=== PATIENT | female | born 1955 | race Caucasian/White ===

== ENCOUNTER → 2017-01-20 | Outpatient (CLI) | payer OTHER ==
--- NOTE | 2017-01-20 14:25 | Diagnostic Imaging Report ---
INDICATION: Screening. The current study was also evaluated with a Computer Aided Detection (CAD) system. Comparison made with prior examination of 02/21/2015. FINDINGS: There is a moderate amount of residual fibroglandular tissue bilaterally. There are scattered benign-type calcifications in both breasts. There are benign lymph nodes in the axillary region of both breasts. There is no new dominant mass, spiculated lesion, or suspicious calcification identified. IMPRESSION: Benign. ACR BI-RADS Category 2: Benign findings. Result letter will be mailed to the patient. Note: At least 10% of breast cancer is not imaged by mammography. Dictated by: Dictated on workstation # [id number]
== END ==
LOC: RAD 10:54
PROVIDERS: ATTEND Nurse Practitioner Community Health
DX: Z12.31 Encounter for screening mammogram for malignant neoplasm of breast (principal)
CPT/HCPCS: 77067

== ENCOUNTER → 2020-01-17 | Outpatient (CLI) | payer SELFPAY | LOC: RAD 14:00 | PROVIDERS: ATTEND Nurse Practitioner | DX: R29.810 Facial weakness (principal); Z53.8 Procedure and treatment not carried out for other reasons ==

== ENCOUNTER → 2020-03-01 | Outpatient (CLI) | payer OTHER ==
[~2020-03-01] VITALS: Ht 152 cm; Wt 131.0 kg
[~2020-03-01] MED LIST: CATHETER FLUSH 10 ML SYR IV PRN; REGADENOSON 0.4 MG/5 ML SYR (LEXISCAN) IV ONE
[2020-03-01 13:06] VITALS: BP 141/84
[2020-03-01 13:20] VITALS: BP 132/94
--- NOTE | 2020-03-01 15:48 | Cardiology Stress Test Report ---
Stress Test Report Date of Procedure/Referring: Date of Procedure: Mar 01, 2020 PCP Scarlet Ballard MD Admitting Physician Center/[facility] Indications: Chest pain, hypertension Baseline Heart Rate: 96 Baseline Blood Pressure: Blood Pressure Systolic: 132 Blood Pressure Diastolic: 94 Baseline Vitals Vital Signs Date Time Temp Pulse Resp B/P (MAP) Pulse Ox O2 Delivery O2 Flow Rate FiO2 03/01/20 13:06 94 16 141/84 (103) 98 Room Air Baseline EKG: Baseline EKG: normal sinus rhythm Summary After explaining the procedure to the patient, she signed a consent and then brought to the stress nuclear laboratory. Patient received 0.4 mg Lexiscan for stress test, ECG, heart rate and blood pressure were monitored continuously. Resting and stress dose of radio tracer were injected, imaging was acquired and reviewed in short axis, horizontal long axis and vertical long axis views. TID: 1.01 SSS: 12 SDS: 12 EF: 39 1. Patient tolerated Lexiscan well 2. Reversible ischemia involving the whole inferior wall and inferolateral wall 3. Normal left ventricular size with diffuse left ventricular hypokinesia, EF 39 percent SCARLET BALLARD MD Mar 01, 2020 15:48
== END ==
LOC: CARD 09:22
PROVIDERS: ATTEND Internal Medicine Cardiovascular Disease
DX: E11.9 Type 2 diabetes mellitus without complications (principal); I10 Essential (primary) hypertension; R06.00 Dyspnea, unspecified; R07.9 Chest pain, unspecified; E66.01 Morbid (severe) obesity due to excess calories
CPT/HCPCS: 78452; 93017; 93306; A9502

== ENCOUNTER → 2020-03-13 | Outpatient (CLI) | payer OTHER ==
[~2020-03-13] MED LIST changes: +ASPI325T32 PO; +CANA1TAB4 PO; -CATHETER FLUSH 10 ML SYR IV PRN; +DESV50TA PO; +DEXT1TAB13 PO; +DORZ10DR27 OU; +INSU100I23 SQ; +INSU100I29 SQ; +LIRA0.6P3 SQ; +LISI40TA PO; +METO50TA7 PO; -REGADENOSON 0.4 MG/5 ML SYR (LEXISCAN) IV ONE; +ROPI1TAB PO; +TIMO5DRO5 OU; +VIT1CAPS44 PO; +ZOLP5TAB PO; +[UNRECOGNIZED DRUG - OTHER] PO
== END ==
LOC: LABNPT 05:40
PROVIDERS: ATTEND Internal Medicine Cardiovascular Disease
DX: Z01.812 Encounter for preprocedural laboratory examination (principal); Z53.8 Procedure and treatment not carried out for other reasons

== ENCOUNTER 2020-03-15 09:00 | Day surgery (SDC) | payer OTHER ==
[~2020-03-15] VITALS: Ht 152 cm; Wt 128.0 kg
[2020-03-15] VITALS (10 sets, daily range): BP systolic 102–158; BP diastolic 56–99
[2020-03-15 07:38] LABS: HEMOGLOBIN 15.1 g/dL (11.5-16.0); MEAN PLATELET VOLUME 10.6 fL (9.0-12.2); WHITE BLOOD COUNT 9.8 10^3/uL (4.3-11.0)
[2020-03-15 07:48] LABS: PROTHROMBIN TIME PATIENT 13.2 SEC (12.2-14.7)
[2020-03-15 07:59] LABS: ALANINE AMINOTRANSFERASE 48 U/L (0-55); ALBUMIN 3.9 GM/DL (3.2-4.5); ALKALINE PHOSPHATASE 75 U/L (40-136); BILIRUBIN,TOTAL 0.5 MG/DL (0.1-1.0); BUN/CREATININE RATIO 14; CALCIUM 9.4 MG/DL (8.5-10.1); CARBON DIOXIDE 19 MMOL/L (21-32); CHLORIDE 107 MMOL/L (98-107); CHOLESTEROL 155 MG/DL (< 200); GFR ESTIMATED > 60; GLUCOSE 284 MG/DL (70-105); HDL CHOLESTEROL 33 MG/DL (40-60); POTASSIUM 4.3 MMOL/L (3.6-5.0); SODIUM 139 MMOL/L (135-145); TOTAL PROTEIN 7.4 GM/DL (6.4-8.2); TRIGLYCERIDES 201 MG/DL (<150); VLDL CHOLESTEROL 40 MG/DL (5-40)
--- NOTE | 2020-03-15 08:21 | NUR ---
SPOKE WITH THE PT (SHE HAS HER BOTTLES WITH HER) AND CALLED [facility] AND [facility] TO COMPLETE THE MED REC 07-10-2019 AMBIEN 5MG #30/30DS (PT DID NOT BRING THIS MED WITH HER) 11-05-2019 TIMOLOL #1 02-14-2020 INVOKAMET 150/1000MG #180/90DS 02-29-2020 DORZOLAMIDE #1 02-29-2020 METOPROLOL SUCC 50MG #30/30DS LISINOPRIL 40MG #90/90DS 02-29-2020 ROPINIROLE 1MG #270/90DS 03-01-2020 PRISTIQ 50MG #30/30DS PT SAID SHE GETS HER INSULINS THRU A PROGRAM AT [facility]- I CALLED AND WAS TOLD SHE GETS THEM THRU THE PALS PROGRAM. I CALLED TO GET THE LAST FILL DATES BUT HAD TO LEAVE A MESSAGE, IF/WHEN I HEAR BACK I WILL UPDATE THE NOTES OT MEDS: ASPIRIN 325MG GLUCOSE TABS ILLLUMNEYES Addendum: 03/15/20 at 1032 by SHAWN PARKS [facility] RETURNED MY CALL REGARDING PTS INSULIN. ON 09-02-2019 [facility] RECEIVED AN ORDER FOR A 4 MONTH SUPPLY ON VICTOZA AND LEVEMIR, HOWEVER [facility] DOES NOT SHOW A LAST FILL DATE FOR HUMALOG
--- NOTE | 2020-03-15 08:33 | Diagnostic Imaging Report ---
Portable erect AP chest. INDICATION: Coronary artery disease. There are no prior studies available for comparison. FINDINGS: The heart size is at the upper limits of normal or slightly enlarged. The lungs are clear. There is no evidence for failure, pneumonia or for pleural effusion. The mediastinum is not widened. The osseous structures are intact. IMPRESSION: There is no evidence for active disease. Dictated by: Dictated on workstation # [id number]
[~2020-03-15 09:00] MED LIST changes: +HEParin (CATH LAB) 2,000 ML IV ONE; +HEParin 1000 UNIT/ML (10ML VIAL) FOR BOLUS ONE; +LIDOCAINE 1% INJ 20 ML 20 ML VIAL ONE; +MIDAZOLAM 5 MG/5 ML (VERSED) VIAL ONE; +NITRO DRIP 25000 MCG/D5W 250 ML IV ONE; +NS IV 1000 ML 1,000 ML IV SCH; +NS IV 1000 ML 1,000 ML ONE; +VERAPAMIL 5 MG/2 ML (CALAN) VIAL IV ONE; +fentaNYL INJECTION 100 MCG/2 ML AMP ONE
--- NOTE | 2020-03-15 09:02 | Cardiac Procedure Note-CS/ASA ---
Pre-Procedure Note Pre-Op Procedure Note H&P Reviewed The H&P was reviewed, patient examined and no changes noted. Date H&P Reviewed: Mar 15, 2020 Time H&P Reviewed: 09:02 Conscious Sedation Pre-Proced Time 09:02 ASA Score 3 For ASA 3 and 4: Consider anesthesia and medical clearance. Also, for patients with a history of failed moderate sedation consider anesthesia. Airway Lungs Heart ASA score ASA 1: a normal healthy patient ASA 2: a patient with a mild systemic disease (mid diabetes, controlled hypertension, obesity x ASA 3: a patient with a severe systemic disease that limits activity (angina, COPD, prior Myocardial infarction) ASA 4: a patient with an incapacitating disease that is a constant threat to life (CHF, renal failure) ASA 5: a moribund patient not expected to survive 24 hrs. (ruptured aneurysm) ASA 6: a declared brain- patient whose organs are being harvested. For emergent operations, add the letter E after the classification Mallampati Classification Grade 3 Sedation Plan Analgesia, Amnesia, Plan communicated to team members, Discussed options with patient/fam, Discussed risks with patient/fam The patient is an appropriate candidate to undergo the planned procedure, sedation, and anesthesia. The patient immediately re-assessed prior to indication. SCARLET OLMSTEAD MD Mar 15, 2020 09:02
[2020-03-15] MEDS ORDERED: NS IV 1000 ML 1,000 ML IV SCH (09:55)
--- NOTE | 2020-03-15 09:57 | Discharge Inst-Post CATH ---
Discharge Inst-CATH/EP Problems Reviewed?: Yes Post Cardiac Cath/EP D/C Inst Follow Up/Plan Appointment with Dr. OLMTSEAD's office in 2-4 weeks <b>CARDIAC CATH/EP PROCEDURE DISCHARGE INSTRUCTIONS</b> ACTIVITY * Go Home directly and rest. * Limit activity of the leg (or wrist if it was used) for 7 days including aerobics, swimming, jogging, bicycling, etc. * Restrict stair-climbing for 7 days if possible, if not, climb up with your non-cath leg, then bring together on the same step. * Avoid lifting, pushing, pulling or excessive movement of the affected extremity for 7 days. * Customary sexual activity may be resumed after 2 days-use caution not to use a position that strains or causes pain to the affected extremity. * No driving for 24 hours. * NO SMOKING. * Avoid straining for bowel movements for 7 days. * Gentle walking on level ground is allowed. * Returning to work will depend on the type of procedure and the results. Your doctor will discuss this with you. CALL YOUR DOCTOR FOR ANY OF THE FOLLOWING: *If bleeding from the puncture site occurs- Apply gentle pressure to site with clean cloth and call your doctor or EMS. * If a knot or lump forms under the skin, increases in size, or causes pain. * If bruising appears to be worsening or moving further down your leg instead of disappearing. * Temperature above 101 F. CARE OF YOUR GROIN INCISION; * Bruising or purple discoloration of the skin near the puncture site is common. * You may shower only, no bathtub bathing for 5 days. Be careful to avoid slipping as your leg may feel stiff. * If a closure device was used on your femoral artery, please see the attached guide regarding care of the device and your leg. * Leave dressing on FOR 24 hours. CARE OF YOUR WRIST INCISION; * Bruising or purple discoloration of the skin near the puncture site is common. * You may shower. * DO NOT submerge wrist. * Leave dressing on FOR 24 hours. SCARLET OLMSTEAD MD Mar 15, 2020 9:57 am
--- NOTE | 2020-03-15 10:00 | Cardiac Cath Report ---
Cardiac Cath Report Physician (s)/Automotive Refinish Technician (s) Physician SCARLET OLMSTEAD MD Pre-Procedure Diagnosis Pre-Procedure Diagnosis: coronary artery disease Post-Procedure Note Procedure Start Date: Mar 15, 2020 Name of Procedure: Left heart catheterization Findings/Procedure Note PROCEDURE NOTE: 64-year-old lady with history of diabetes mellitus, hypertension hyperlipidemia, had an abnormal stress test with inferior wall ischemia scheduled for cardiac catheterization possible PTCA. After explaining the procedure to the patient, all pros and cons were explained, all questions were answered. The patient signed the consent and then she was placed on the cardiac catheterization laboratory. Groin was prepped SL fashion local anesthesia was used. Sheath placed in the right radial artery, [place] catheter was used advanced to the left ventricular cavity, pressure was measured, pullback LV to aorta was done then turned to the right coronary artery and angiogram was done I was unable to intubate the left coronary artery exchanged the catheter in 2 JL 3.5 without success then I used MP1 which was successful in intubating the left main coronary artery and angiogram to the left system was done. Pullback LV to aorta was measured no left ventriculogram was done At the end of the procedure the sheath was removed. Vascular band was used FINDINGS: Hemodynamics LV 94/22, end-diastolic pressure of 22 Aorta 86/68 mean of 73 ANATOMY: Left Main is free of obstructive disease Left Anterior Descending has mild disease nonobstructive disease Left Circumflex is large dominant artery with slow flow due to small vessel disease no significant obstructive disease Right Coronory Artery is small nondominant artery with no obstructive disease LV Gram was not done, pressure was measured CONCLUSION: 1. Large dominant circumflex artery with slow flow due to small vessel disease nonobstructive disease 2. Otherwise mild coronary artery disease 3. Mildly elevated left ventricular end-diastolic pressure DISCUSSION AND RECOMMENDATION: Radical therapy is recommended no intervention is warranted Anesthesia Type: Conscious Sedation Estimated blood loss (mL): 15 ml Contrast Amount: 25 ml Total Radiation Dose: 628 mGy Post-Procedure Diagnosis Post-operative diagnosis: Chest pain Coronary artery disease Hypertension Hyperlipidemia SCARLET OLMSTEAD MD Mar 15, 2020 10:00 am
== END 2020-03-15 12:40 | disposition home or self-care (01) ==
LOC: CATH 09:00 → SDC 10:06 → CATH 12:40
PROVIDERS: ATTEND Internal Medicine Cardiovascular Disease
DX: I25.10 Atherosclerotic heart disease of native coronary artery without angina pectoris (principal); E11.9 Type 2 diabetes mellitus without complications; R94.39 Abnormal result of other cardiovascular function study; E78.2 Mixed hyperlipidemia; I11.0 Hypertensive heart disease with heart failure; I50.9 Heart failure, unspecified; E66.01 Morbid (severe) obesity due to excess calories; Z68.43 Body mass index [BMI] 50.0-59.9, adult; Z79.899 Other long term (current) drug therapy
CPT/HCPCS: 71045; 80053; 80061; 85027; 85610; 85730; 87081; 93458; C1769; 36415

== ENCOUNTER → 2020-10-10 | Outpatient (CLI) | payer MEDICARE, OTHER ==
[~2020-10-10] MED LIST changes: -HEParin (CATH LAB) 2,000 ML IV ONE; -HEParin 1000 UNIT/ML (10ML VIAL) FOR BOLUS ONE; -LIDOCAINE 1% INJ 20 ML 20 ML VIAL ONE; -LISI40TA PO; +LISI40TA9 PO; -MIDAZOLAM 5 MG/5 ML (VERSED) VIAL ONE; -NITRO DRIP 25000 MCG/D5W 250 ML IV ONE; -NS IV 1000 ML 1,000 ML IV SCH; -NS IV 1000 ML 1,000 ML ONE; -VERAPAMIL 5 MG/2 ML (CALAN) VIAL IV ONE; -fentaNYL INJECTION 100 MCG/2 ML AMP ONE
--- NOTE | 2020-10-10 20:44 | Diagnostic Imaging Report ---
INDICATION: Routine screening. COMPARISON is made with prior mammograms 01/20/2017 and 02/21/2015. 2-D and 3-D bilateral screening mammography was performed with CAD. Scattered fibroglandular densities are identified bilaterally. Intraparenchymal lymph node upper outer left breast is stable. Benign calcifications are scattered throughout both breasts. No spiculated mass or malignant appearing microcalcifications are seen. Axillae are unremarkable. IMPRESSION: BI-RADS Category 2 No mammographic features suspicious for malignancy are identified. ACR BI-RADS Category 2: Benign findings. Result letter will be mailed to the patient. Note: At least 10% of breast cancer is not imaged by mammography. Dictated by: Dictated on workstation # [id number]
== END ==
LOC: RAD 11:09
PROVIDERS: ATTEND Nurse Practitioner Family
DX: Z12.31 Encounter for screening mammogram for malignant neoplasm of breast (principal); Z13.820 Encounter for screening for osteoporosis
CPT/HCPCS: 77063; 77067

== ENCOUNTER → 2020-12-11 | Outpatient (CLI) | payer MEDICARE, OTHER | LOC: CARD 10:05 | PROVIDERS: ATTEND Physician Assistant | DX: I25.10 Atherosclerotic heart disease of native coronary artery without angina pectoris (principal); I11.9 Hypertensive heart disease without heart failure | CPT/HCPCS: 93306 ==

== ENCOUNTER → 2021-06-15 | Outpatient (CLI) | payer MEDICARE, OTHER | LOC: RAD | PROVIDERS: ATTEND Nurse Practitioner Family | DX: Z53.9 Procedure and treatment not carried out, unspecified reason (principal) ==

== ENCOUNTER → 2021-06-15 | Outpatient (CLI) | payer MEDICARE, OTHER ==
--- NOTE | 2021-06-15 11:20 | Diagnostic Imaging Report ---
PROCEDURE: CT head without contrast. TECHNIQUE: Multiple contiguous axial images were obtained through the brain without the use of intravenous contrast. Auto Exposure Controls were utilized during the CT exam to meet ALARA standards for radiation dose reduction. INDICATION: Left-sided paralysis. Correlation is made with prior head CT from 01/07/2020. Ventricles and sulci are within normal limits. No sulcal effacement or midline shift is identified. No acute intra-axial or extra-axial hemorrhage is detected. Cisterns are patent. Visualized paranasal sinuses are clear. IMPRESSION: No acute intracranial process is detected. Dictated by: Dictated on workstation # [id number]
== END ==
LOC: RAD 10:49
PROVIDERS: ATTEND Nurse Practitioner Family
DX: G51.0 Bell's palsy (principal)
CPT/HCPCS: 70450

== ENCOUNTER → 2022-01-29 | Outpatient (CLI) | payer MEDICARE, OTHER | LOC: CARD 09:00 | PROVIDERS: ATTEND Internal Medicine Cardiovascular Disease | DX: I34.0 Nonrheumatic mitral (valve) insufficiency (principal); I11.9 Hypertensive heart disease without heart failure | CPT/HCPCS: 93306 ==

== ENCOUNTER 2022-06-04 18:31 | Outpatient (CLI) | payer MEDICARE, OTHER | END 2022-06-05 06:41 | disposition home or self-care (01) | LOC: SLEEP 18:31 | PROVIDERS: ATTEND Nurse Practitioner Family | DX: G47.33 Obstructive sleep apnea (adult) (pediatric) (principal); G47.9 Sleep disorder, unspecified; G47.10 Hypersomnia, unspecified; G47.00 Insomnia, unspecified; R06.83 Snoring | CPT/HCPCS: 95811 ==